=== PATIENT | male | born 2000 | race African-American/Black ===

== ENCOUNTER 2022-07-05 09:59 | Emergency (ER) | payer OTHER ==
[2022-07-05] MEDS ORDERED: Sodium Chloride 0.9% 1,000 ML IV SCH (10:15)
[2022-07-05] MEDS ORDERED: Acetaminophen 325 MG Tab ONE (10:35)
[2022-07-05] MEDS ORDERED: Acetaminophen 325 MG Tab PO ONE (10:38)
[2022-07-05] MEDS ORDERED: Iopamidol 612 MG/ML 100 ML Bottle IVPUSH ONE (10:46)
[2022-07-05] MEDS ORDERED: Sodium Chloride 0.9% 10 ML Syringe FLUSH PRN (10:46)
[2022-07-05] MEDS ORDERED: Lidocaine 1% 50 ML MDV ONE (11:26)
[2022-07-05] MEDS ORDERED: Lidocaine 1% 10 ML MDV INJECT ONE (11:38)
== END 2022-07-05 13:29 | disposition home or self-care (01) ==
LOC: JD.ED 09:59
DX: S01.81XA Laceration without foreign body of other part of head, initial encounter (principal); S20.219A Contusion of unspecified front wall of thorax, initial encounter; V69.00XA Driver of heavy transport vehicle injured in collision with unspecified motor vehicles in nontraffic accident, initial encounter; Y92.410 Unspecified street and highway as the place of occurrence of the external cause
CPT/HCPCS: 12013; 70486; 71260; 96360; 96361; 99284; A9270; J3490; J7030; Q9967